=== PATIENT | female | born 1985 | race Caucasian/White ===

== ENCOUNTER 2022-09-12 15:29 | Emergency (ER) | payer OTHER ==
[2022-09-12] MEDS: Alum Hydroxide/Mag Hydroxide 15 ML, Lidocaine 2% 15 ML PO ONE ×2 (15:55)
[2022-09-12] MEDS: HYDROmorphone 2 MG/ML SDV IM ONE (16:14)
[2022-09-12 16:29] LABS: ESTIMATED GFR 98 mL/min (>60)
[2022-09-12] MEDS: Sodium Chloride 0.9% 10 ML Syringe FLUSH PRN (17:00)
[2022-09-12] MEDS: Iopamidol 755 Mg/ML 100 ML Bottle IV ONE (17:05)
[2022-09-12] MEDS: HYDROmorphone 2 MG/ML SDV IVPUSH ONE (18:32)
== END 2022-09-12 18:42 ==
LOC: FB.ED 15:29
DX: R10.13 Epigastric pain (principal); R74.01 Elevation of levels of liver transaminase levels
CPT/HCPCS: 36415; 74177; 80053; 83690; 84484; 85027; 86140; 96372; 96374; 99284-25; A9270-GY; J1170; J3490; Q9967

== ENCOUNTER 2025-05-27 01:12 | Emergency (ER) | payer BC, OTHER ==
[2025-05-27] MEDS: Ketorolac 15 MG/ML SDV IVPUSH ONE (01:47)
[2025-05-27 02:09] LABS: BLOOD UREA NITROGEN,BUN 16 mg/dL (7-18); CARBON DIOXIDE,CO2 29 mmol/L (21-32); CHLORIDE,CL 105 mmol/L (100-110); CREATININE 1.0 mg/dL (0.55-1.02); ESTIMATED GFR 74 mL/min (>60); GLUCOSE RANDOM 89 mg/dL (80-116); POTASSIUM,K 3.7 mmol/L (3.5-5.3); SODIUM,NA 141 mmol/L (135-145)
[2025-05-27 02:09] LABS: GLUCOSE,URINE NORMAL (NORMAL); OCCULT BLOOD,URINE LARGE (NEGATIVE)
[2025-05-27 02:11] LABS: BASOPHILS ABSOLUTE AUTO 0.0 x10-3/uL (0.0-0.1); BASOPHILS PERCENT AUTO 0.5 % (0.2-1.5); EOSINOPHILS ABSOLUTE AUTO 0.2 x10-3/uL (0.0-0.8); EOSINOPHILS PERCENT AUTO 1.8 % (0.6-8.1); LYMPHOCYTES ABSOLUTE AUTO 3.3 x10-3/uL (1.0-4.4); LYMPHOCYTES PERCENT AUTO 36.2 % (18.4-52.1); MEAN PLATELET VOLUME 9.5 fL (7.1-12.4); MONOCYTES ABSOLUTE AUTO 0.9 x10-3/uL (0.3-1.0); MONOCYTES PERCENT AUTO 9.7 % (4.4-15.7); NEUTROPHILS ABSOLUTE AUTO 4.8 x10-3/uL (1.5-6.3); NEUTROPHILS PERCENT AUTO 51.8 % (30.8-76.2); PLATELET COUNT,PLT 295 x10(3)uL (151-488); RED BLOOD CELL COUNT 4.85 x10(6)uL (3.60-5.20); RED CELL DISTRIBUTION WIDTH 12.8 % (12.3-16.5); WHITE BLOOD CELL COUNT,WBC 9.2 x10-3/uL (3.0-10.3)
[2025-05-27 02:12] LABS: APPEARANCE,URINE CLEAR (CLEAR)
[2025-05-27 02:15] LABS: A/G RATIO 1.1; ALANINE AMINOTRANSFERASE,ALT 27 U/L (12-36); ASPARTATE AMNIOTRANSFERASE,AST 17 IU/L (5-25); BILIRUBIN TOTAL 0.4 mg/dL (0.1-1.3); PROTEIN TOTAL,TP 7.0 g/dL (6.0-8.0)
[2025-05-27 02:19] LABS: SQUAMOUS EPITHELIAL CELLS,UR FEW (NS,R,O)
[2025-05-27] MEDS: Ondansetron 4 MG/2 ML SDV IVPUSH ONE (02:31)
[2025-05-27] MEDS: HYDROmorphone 2 MG/ML SDV IVPUSH ONE (02:31)
== END 2025-05-27 03:16 | disposition home or self-care (01) ==
LOC: FB.ED 01:12
DX: N13.2 Hydronephrosis with renal and ureteral calculous obstruction (principal); Z90.49 Acquired absence of other specified parts of digestive tract; Z79.899 Other long term (current) drug therapy
CPT/HCPCS: 36415; 74176; 80053; 81001; 83690; 85025; 86140; 96361; 96374; 96375; 99284; A9270; J1171; J1885; J2405; J7030